=== PATIENT | female | born 1955 | race Caucasian/White ===

== ENCOUNTER 2017-12-20 00:01 | Emergency (ER) | payer MEDICARE, OTHER ==
[~2017-12-20] VITALS: Ht 149.9 cm; Wt 79.5 kg
[~2017-12-20 00:01] MED LIST: BENTYL PO; CEFTIN500 MG PO; CIPRO 500MG TA500 MG PO; CIPRO HC OTIC S10 ML OT; FENTANYL 75MCG TOP; FLEXERIL10 MG PO; GABAPENTIN300 MG PO; GLUCOPHAGE500 MG/TAB PO; LANTUS100 U/ML; LANTUS100 U/ML SC; LEVEMIR SQ; LORTAB 5/500 501 TAB PO; METFORMIN500 MG PO; MORPHINE PATCH; NO HOME MEDICATIONS; NORCO 325 MG-51 TAB PO; ONGLYZA5 MG PO; PERCOCET 325 MG1 TA2 PO; PERCOCET 500 MG1 TAB PO; PHENERGAN 25 TA25 MG PO; ZESTRIL 10MG10 MG PO
[2017-12-20 00:06] VITALS: TEMP 98.1
[2017-12-20] MEDS ORDERED: OMNICEF 300MG300 MG PO (01:05)
[2017-12-20 01:24] VITALS: BP 1666/86; PULSE 71
== END 2017-12-20 01:25 | disposition home or self-care (01) ==
LOC: COL.ER 00:01
DX: L08.9 Local infection of the skin and subcutaneous tissue, unspecified (principal); E11.9 Type 2 diabetes mellitus without complications; Z79.4 Long term (current) use of insulin

== ENCOUNTER → 2018-12-11 | Outpatient (CLI) | payer MEDICARE, OTHER ==
[~2018-12-11] MED LIST changes: +OMNICEF 300MG300 MG PO
== END ==
LOC: MC.RAD 10:13
DX: Z12.31 Encounter for screening mammogram for malignant neoplasm of breast (principal); N64.89 Other specified disorders of breast

== ENCOUNTER → 2018-12-13 | Outpatient (CLI) | payer MEDICARE, OTHER | LOC: MC.RAD 10:00 | DX: N64.89 Other specified disorders of breast (principal) | CPT/HCPCS: G0279 ==